=== PATIENT | female | born 1960 | race Caucasian/White ===

== ENCOUNTER 2017-02-27 19:47 | Emergency (ER) | payer OTHER ==
[~2017-02-27] VITALS: Ht 167.6 cm; Wt 98.9 kg
--- NOTE | 2017-02-27 20:08 | NUR ---
PT A/OX4 BREATHING EFFORTLESSLY ON ROOM AIR, PT STATES SHE HAS BEEN HVAING ABD PAIN X 1 HOUR WITH N/V, PT IN BED ON MONITOR, BLOOD SUAGR CHECKED, IV PLACED, LABS DRAWN, MD MADE AWARE WILL CONTINUE TO MONITOR.
[2017-02-27] MEDS ORDERED: PROMETHAZINE HCL 25 MG/ML AMPUL ONE (20:22)
[2017-02-27] MEDS ORDERED: MORPHINE SULFATE INJ 4 MG/ML DISP.SYRIN ONE (20:22)
[2017-02-27] MEDS ORDERED: PANTOPRAZOLE 40 MG VIAL ONE (20:23)
[2017-02-27] MEDS ORDERED: IV NS 0.9% 1,000 ML ONE (20:23)
[2017-02-27] MEDS ORDERED: IV SET PRIMARY 1 EA INFUS.SET MC ONE (20:23)
[2017-02-27] MEDS ORDERED: PANTOPRAZOLE 40 MG VIAL IV ONE (20:30)
[2017-02-27] MEDS ORDERED: PROMETHAZINE HCL 25 MG/ML AMPUL IV ONE (20:30)
[2017-02-27] MEDS ORDERED: MORPHINE SULFATE INJ 2 MG/ML DISP.SYRIN IV ONE (20:30)
[2017-02-27] MEDS ORDERED: IV NS 0.9% 1,000 ML BAG IV ONE (20:30)
--- NOTE | 2017-02-27 20:41 | NUR ---
PT TO CT
[2017-02-27 20:42] LABS: EOSINOPHILS % (AUTO) 0.2 % (0.0-6.0); HEMOGLOBIN 14.8 g/dL (11.5-14.8)
[2017-02-27 20:46] LABS: BASOPHILS # (AUTO) 0.3 /CMM (0.0-0.2); BASOPHILS % (AUTO) 2.4 % (0.0-2.0); HEMATOCRIT 45 % (33-45); LYMPHOCYTES # (AUTO) 3.2 /CMM (0.8-4.8); LYMPHOCYTES % (AUTO) 28.2 % (20.0-44.0); MEAN CORPUSCULAR HEMOGLOBIN 29 PG (26.0-33.0); MEAN CORPUSCULAR HGB CONC 33 g/dl (31.0-36.0); MEAN CORPUSCULAR VOLUME 88 fL (82-100); MONOCYTES # (AUTO) 0.6 /CMM (0.1-1.30); MONOCYTES % (AUTO) 5.4 % (2.0-12.0); NEUTROPHILS # (AUTO) 7.4 /CMM (1.8-8.9); NEUTROPHILS % (AUTO) 63.8 % (43.0-81.0); PLATELET COUNT (AUTO) 359 /CMM (150-450); RDW COEFFICIENT OF VARIATION 13.5 (11.5-15.0); RED BLOOD CELL COUNT(AUTO) 5.14 MIL/uL (4.0-5.2); WHITE BLOOD COUNT (AUTO) 11.5 K/uL (4.3-11.0)
[2017-02-27 21:00] LABS: CALCIUM, SERUM 10.3 mg/dL (8.5-10.1); CARBON DIOXIDE 26 mmol/L (21-32); CHLORIDE 102 mmol/L (98-107); GLUCOSE 122 mg/dL (74-106); POTASSIUM 3.6 mmol/L (3.5-5.1); SODIUM SERUM 140 mmol/L (136-145); UREA NITROGEN, BLOOD 17 mg/dL (7-18)
[2017-02-27 21:04] LABS: INR 0.95 (0.87-1.13); PROTHROMBIN TIME 9.9 SECS (9.5-12.7)
[2017-02-27 21:06] LABS: ALANINE AMINOTRANSFERASE 51 U/L (12-78); ALBUMIN 4.5 g/dL (3.4-5.0); ALKALINE PHOSPHATASE 171 U/L (46-116); ASPARTATE AMINOTRANSFERASE 33 U/L (15-37); BILIRUBIN,DIRECT 0.1 mg/dL (0.0-0.2); BILIRUBIN,TOTAL 0.4 mg/dL (0.2-1.0); LIPASE 172 U/L (73-393); TOTAL PROTEIN, SERUM 8.7 g/dL (6.4-8.2)
[2017-02-27 21:08] LABS: TROPONIN I < 0.017 ng/mL (0.00-0.056)
[2017-02-27 21:44] LABS: BAND % (MANUAL) 6 % (0.0-5.0); LYMPHOCYTES % (MANUAL) 30 % (16-48); MONOCYTES % (MANUAL) 3 % (0-11.0); NEUTROPHILS % (MANUAL) 60 (42-76); REACTIVE LYMPHOCYTES 1 % (0-0)
--- NOTE | 2017-02-27 21:48 | NUR ---
Patient is resting comfortably in bed with eyes closed. Easily aroused. VSS
[2017-02-27 22:42] LABS: APPEARANCE,URINE CLOUDY (CLEAR); BILIRUBIN,URINE NEGATIVE (NEGATIVE); BLOOD, URINE TRACE Ery/uL (NEGATIVE); COLOR,URINE YELLOW (YELLOW); KETONES,URINE TRACE (NEGATIVE); LEUKOCYTE ESTERASE ,URINE 2+ (NEGATIVE); NITRITE, URINE NEGATIVE (NEGATIVE); PH,URINE 5.5 (5.0-8.0); PROTEIN,URINE 1+ mg/dl (NEGATIVE); UGLUCOSE NEGATIVE (NEGATIVE); UROBILINOGEN,URINE 0.2 EU/dL (0.2)
[2017-02-27 22:52] LABS: BACTERIA,URINE 1+ /HPF (None Seen); HYALINE CASTS, URINE Rare /LPF (None Seen); RBC,URINE 0-2 /HPF (0-2); SQUAMOUS EPITHELIAL CELL,UR Moderate /HPF (None Seen)
--- NOTE | 2017-02-27 23:02 | NUR ---
Patient discharged to home in stable condition. Written and verbal after care instructions given. Patient verbalizes understanding of instruction.IV removed. Catheter intact and site benign. Pressure and 4x4 applied to site. No bleeding noted.
[2017-02-27 23:03] VITALS: BP 114/72
== END 2017-02-27 23:14 | disposition home or self-care (01) ==
LOC: ER 19:48
DX: R10.13 Epigastric pain (principal); R11.2 Nausea with vomiting, unspecified; E11.9 Type 2 diabetes mellitus without complications; Z85.3 Personal history of malignant neoplasm of breast; Z88.1 Allergy status to other antibiotic agents
CPT/HCPCS: 36415; 71010; 74176; 80048; 80076; 81001; 82962; 83690; 84484; 85025; 85730; 87086; 93005; 96361; 96374; 96375; 99285; A4606; C9113; J2270; J2550; J7030; Z7610; 81000-TC